=== PATIENT | female | born 1940 | race Caucasian/White ===

== ENCOUNTER 2020-10-06 12:46 | Outpatient (RCR) | payer MEDICARE, SELFPAY | END 2020-11-25 12:08 | disposition home or self-care (01) | LOC: HO.WCC 12:46 | PROVIDERS: PCP Internal Medicine Medical Oncology; Visit Provider Physician Assistant | DX: Z09 Encounter for follow-up examination after completed treatment for conditions other than malignant neoplasm (principal); I87.2 Venous insufficiency (chronic) (peripheral); I70.202 Unspecified atherosclerosis of native arteries of extremities, left leg; I70.201 Unspecified atherosclerosis of native arteries of extremities, right leg; I89.0 Lymphedema, not elsewhere classified; I11.0 Hypertensive heart disease with heart failure; I50.33 Acute on chronic diastolic (congestive) heart failure; Z79.01 Long term (current) use of anticoagulants | CPT/HCPCS: 11042; 99204; 99212; 99213 ==

== ENCOUNTER 2020-12-08 08:47 | Outpatient (REF) | payer MEDICARE, SELFPAY ==
--- NOTE | 2020-12-08 | US_ITS ---
EXAMINATION: COLOR-FLOW DUPLEX IMAGING OF THE UNILATERAL RIGHT LOWER EXTREMITY ARTERIAL SYSTEM. VELOCITY MEASUREMENTS THROUGHOUT THE FEMORAL ARTERIES WITH ANKLE-BRACHIAL PERIPHERAL ARTERIAL TESTING. CLINICAL INFORMATION: This is an 80-year-old female with hypertension. Peripheral arterial disease. Ulceration in the right leg. Interventional Radiologist: Jesus Manuel Salvador M.D., F.S.I.R., F.A.C.R. RIGHT FEMORAL RUNOFF VELOCITIES: The right common femoral artery measures 93 cm/s and biphasic. The right profunda femoral artery is 97 cm/s and is biphasic. Right proximal superficial femoral artery measures 85 cm/s and triphasic. Mid superficial femoral artery is 81 cm/s and triphasic. Distal right superficial femoral artery measures 116 cm/s and is triphasic. Right popliteal velocity measures 77 cm/s and is triphasic. The posterior tibial artery velocity measures 138 cm/s and was triphasic. There is a Campbell's cyst in the popliteal fossa measuring 2.4 x 1.2 x 2.7 cm. There is a prominent lymph node within the right groin measuring 3.7 x 0.9 x 1.7 cm. It has a fatty hilum with standard expected vascularity. Clinical correlation is recommended. US/US arterial duplex LE RT IMPRESSION: 1. No focal hemodynamically significant stenosis by peripheral arterial testing.
== END 2020-12-08 08:48 | disposition home or self-care (01) ==
LOC: HO.US 08:47
PROVIDERS: Visit Provider Physician Assistant
DX: I89.0 Lymphedema, not elsewhere classified (principal); I50.33 Acute on chronic diastolic (congestive) heart failure; I70.239 Atherosclerosis of native arteries of right leg with ulceration of unspecified site; I70.238 Atherosclerosis of native arteries of right leg with ulceration of other part of lower leg
CPT/HCPCS: 93926

== ENCOUNTER → 2021-12-16 13:46 | Outpatient (BNVA) | payer MEDICARE, SELFPAY | PROVIDERS: PCP Internal Medicine Medical Oncology; Visit Provider Surgery | DX: C50.912 Malignant neoplasm of unspecified site of left female breast (principal) | CPT/HCPCS: 99202 ==

== ENCOUNTER 2021-12-30 07:51 | Inpatient (IN) | payer MEDICARE, SELFPAY ==
[2021-12-28 10:23] VITALS: BMI 38.2
--- NOTE | 2021-12-29 12:12 | HO.ANESPROP2 ---
Documented by User: Catalina Razo NP 12/29/21 12:28 HPI - Anesthesia Eval Consult details Narrative: 81yo F for Left Mastectomy Modified Radical Eliquis for afib Stable cardiac visit 08/2021 [facility] Active Problems Active Problems: All Active Problems (Updated 12/28/21 @ 10:18 by Francisca Villa, JOSE RAUL) Recurrent cancer of left breast (Acute) Triple negative malignant neoplasm of breast (Acute) Invasive ductal carcinoma of left breast (Acute) Past Medical History Medical History Aortic stenosis, mild Arthritis Atrial fibrillation COVID-19 vaccine series completed History of cardioversion Hypertension Invasive ductal carcinoma of left breast Lichen sclerosus et atrophicus Obesity Pulmonary nodule Skin cancer Subdural hematoma (2016) Vertigo Family History Family History Maternal Grandmother Cervical cancer Father Prostate cancer Paternal Aunt Breast cancer Surgical History Surgical History History of cataract surgery History of lumpectomy of left breast (2008) History of tubal ligation Social History Social History Are you a primary healthcare account manager to a significant other at home: No Do you presently have visiting nurse or other home services: No Alcohol intake: never Patient Tobacco Use Status: Never used Tobacco Use of substances other than those prescribed or required for medical reasons: No Have you been hit, kicked, punched, or otherwise hurt by someone within the past year? If so, by whom?: No Advance Directives Information Provided: Yes (states will bring copies of HCP & MOLST forms DOS) Advance Directives on File: No Recently lost weight without trying: No Eating poorly because of decreased appetite: No Nutrition Risks: No Nutritional Risk Poor oral hygiene: No Meds Allergies Allergy/AdvReac Type Severity Reaction Status Date / Time Sulfa (Sulfonamide Allergy Intermediate rash Verified 12/28/21 10:19 Antibiotics) (childhood allergy) Home Medications Medication Instructions Recorded Confirmed Last Taken Type apixaban 5 mg tablet (Eliquis) 5 mg PO BID 12/17/21 12/28/21 Unknown History bumetanide 2 mg tablet 2 mg PO DAILY 12/17/21 12/28/21 Unknown History diltiazem HCl 120 mg 120 mg PO DAILY 12/17/21 12/28/21 Unknown History capsule,extended release 24 hr isosorbide mononitrate 60 mg 60 mg PO QAM 12/17/21 12/28/21 Unknown History tablet,extended release 24 hr metoprolol succinate 200 mg 200 mg PO DAILY 12/17/21 12/28/21 Unknown History tablet,extended release 24 hr potassium chloride 20 mEq 20 meq PO DAILY 12/17/21 12/17/21 Unknown History tablet,extended release calcium carbonate 600 mg calcium 600 mg PO TID 12/27/21 12/28/21 Unknown History (1,500 mg) tablet cholecalciferol (vitamin D3) 25 25 mcg PO DAILY 12/27/21 12/27/21 Unknown History mcg (1,000 unit) capsule (Vitamin D3) multivitamin 1 tab PO DAILY 12/27/21 12/28/21 Unknown History potassium chloride 20 mEq 1 tab PO DAILY 12/28/21 12/28/21 Unknown History tablet,extended release Exam Exam Date and Time: December 29, 2021 1212 Height,Weight and Vital Signs: Height 5 ft 2 in Weight 94.801 kg Pertinent Lab Results Pertinent Lab Results: Labs from outside facility 11/04/2021 Na 140 K 3.8 Cl 100 Bicarb 30 BUN 23 Creat 1.0 WBC 8.2 Hgb 13.0 Hct 40.5 125 (L) Narrative Narrative: EKG 08/2021 SR with 1st deg AV block Mod voltage criteria for LVH, may be normal variant Borderline EKG When compared with previous, Premature supraventricular complexes are no longer present ECHO 05/2021 LA moderately to severely dilated Aortic valve is trileaflet Aortic valve appears moderately to severely calcified Mild aortic stenosis Mild to moderate aortic regurg Mild mitral regurg Dilation of ascending aorta measureing 4.1cm LV size is normal LV wall thickness is normal LV systolic function is normal LVEF 55-60% No regional wall motion abn Grade 1, mild DD with impaired LV relaxation Pt in SR Assessment and Plan Assessment Anesthesia Assessment: Chart Reviewed Documented by User: Heidy Jimenez MD 12/30/21 10:04 [facility] Active Problems Active Problems: All Active Problems (Updated 12/28/21 @ 10:18 by Francisca Villa RN) Recurrent cancer of left breast (Acute) Triple negative malignant neoplasm of breast (Acute) Invasive ductal carcinoma of left breast (Acute) On eliquis for afib. 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 sclerosus et atrophicus Obesity Pulmonary nodule Skin cancer Subdural hematoma (2017) Vertigo Family History Family History Maternal Grandmother Cervical cancer Father Prostate cancer Paternal Aunt Breast cancer Family history of problems with anesthesia: No Surgical History Surgical History History of cataract surgery History of lumpectomy of left breast (2008) History of tubal ligation History of Problems with Anesthesia: No Social History Social History Are you a primary healthcare account manager to a significant other at home: No Do you presently have visiting nurse or other home services: No Alcohol intake: never Patient Tobacco Use Status: Never used Tobacco Use of substances other than those prescribed or required for medical reasons: No Have you been hit, kicked, punched, or otherwise hurt by someone within the past year? If so, by whom?: No Advance Directives Information Provided: Yes (states will bring copies of HCP & MOLST forms DOS) Advance Directives on File: No Recently lost weight without trying: No Eating poorly because of decreased appetite: No Nutrition Risks: No Nutritional Risk Poor oral hygiene: No Meds Allergies Allergy/AdvReac Type Severity Reaction Status Date / Time Sulfa (Sulfonamide Allergy Intermediate rash Verified 12/28/21 10:19 Antibiotics) (childhood allergy) Home Medications Medication Instructions Recorded Confirmed Last Taken Type apixaban 5 mg tablet (Eliquis) 5 mg PO BID 12/17/21 12/28/21 Unknown History bumetanide 2 mg tablet 2 mg PO DAILY 12/17/21 12/28/21 Unknown History diltiazem HCl 120 mg 120 mg PO DAILY 12/17/21 12/28/21 Unknown History capsule,extended release 24 hr isosorbide mononitrate 60 mg 60 mg PO QAM 12/17/21 12/28/21 Unknown History tablet,extended release 24 hr metoprolol succinate 200 mg 200 mg PO DAILY 12/17/21 12/28/21 Unknown History tablet,extended release 24 hr potassium chloride 20 mEq 20 meq PO DAILY 12/17/21 12/17/21 Unknown History tablet,extended release calcium carbonate 600 mg calcium 600 mg PO TID 12/27/21 12/28/21 Unknown History (1,500 mg) tablet cholecalciferol (vitamin D3) 25 25 mcg PO DAILY 12/27/21 12/27/21 Unknown History mcg (1,000 unit) capsule (Vitamin D3) multivitamin 1 tab PO DAILY 12/27/21 12/28/21 Unknown History potassium chloride 20 mEq 1 tab PO DAILY 12/28/21 12/28/21 Unknown History tablet,extended release Exam Height,Weight and Vital Signs: Height 5 ft 2 in Weight 94.801 kg Vital Signs Temp Pulse Resp BP Pulse Ox 12/30/21 08:53 128/81 12/30/21 08:29 98.3 F 73 18 164/89 H 96 Airway Mallampati Class: II TM Dist: >3cm Neck ROM: Full Loose/Missing/Broken Teeth: Yes (1 extraction bottom Right) Heart: RRR + murmur Lungs: CTAB Assessment and Plan Assessment Anesthesia Assessment: Anesthesia Plan Discussed Final Anesthetic Review Family History of Problems with Anesthesia: No History of Problems with Anesthesia: No NPO: Yes ASA Class: III Final Preanesthetic Review: No Changes in Pt Med Stat, Meds/Allgs Chart Reviewed, Consent Obtained/Reviewed, Anes Risks/Benef Reviewed and DNR Form (If Appl.) Patient Risk: Intermediate Procedure Risk: Intermediate Assessment/Block/Sedation in SS: Assess/Block/Sedation-SS Anesthetic Plan Anesthetic Plan: GA Disposition: Standard PACU and Inp. Admit - Standard Bed
[2021-12-30] VITALS (11 sets, daily range): BP systolic 128–164; BP diastolic 64–89; PULSE 50–73; RESP 16–18; TEMP 36.1–36.8; O2SAT 95–99; BMI 38.2
[2021-12-30 08:50] LABS: COVID-19 Test Negative (Negative); IDNOW Serial# 9DD0AD1C
--- NOTE | 2021-12-30 09:28 | MHC.SHP ---
Pre-Procedural Eval Section A Date of Service: 12/30/21 The patient is an INPATIENT: No Changes since office visit: Yes Patient answered all questions; No Cold of Flu in the past 2 weeks, No New Medical Problems and No Changes in Medication The History & Physical has been completed within 30 days and I have reviewed it.: Yes Section B Chief Complaint: Recurrent left breast cancer Allergies: Allergies Allergy/AdvReac Type Severity Reaction Status Date / Time Sulfa (Sulfonamide Allergy Intermediate rash Verified 12/28/21 10:19 Antibiotics) (childhood allergy) Plan Diagnosis/Plan: Unchanged I have reviewed the history and physical and performed a pertinent physical examination on my patient. No changes have occurred unless specified.
--- NOTE | 2021-12-30 11:56 | P.OP_ITS ---
Operative Note Operative Note Date of Service: 12/30/21 Narrative: Preoperative diagnosis:Recurrent left breast invasive ductal carcinoma, triple negative Postoperative diagnosis: same Procedure: left modified radical mastectomy Surgeon: Mitchel Crawford MD Senior Hadoop Developer: Alexa Flores PA-C Anesthesia: general LMA Indications for procedure: 81-year-old female patient with a previous history of a invasive ductal carcinoma of the left breast in 2009 status post lumpectomy and axillary node dissection. Previous tumor was ER/UT positive. Patient underwent radiation therapy following the procedure. She is now found to have a palpable mass in the left breast. Subsequent ultrasound guided core biopsy revealed a recurrent invasive ductal carcinoma, ER/ UT/HER2 Bj negative. She presents today for modified radical mastectomy. Operative findings: Incision in the upper outer quadrant from the prior lumpectomy. Significant scar tissue in the left axilla from the previous axillary node dissection. Specimen: Left breast and axilla Estimated blood loss: 10 mL Drains: Amor-Monroe x2 Complications: none Procedure details: patient was brought to the OR placed in a supine position. After administering general anesthesia the patient's left breast was prepped w ith ChloraPrep and draped in a sterile fashion. A surgical time-out was called the consent confirmed. Patient received preoperative antibiotics and Venodyne boots were in place. Local anesthesia consisting of 0.5% Sensorcaine was infiltrated circumferentially around the breast. An elliptical incision to include the previous incision was created with a 10 blade starting from the lower medial sternal border and radiating obliquely towards the axilla. Incision was carried down through subcutaneous tissue up to the capsule of the breast. Beginning at the superior skin flap incision was continued superiorly over the breast tissue using electrocautery up to the bottom surface of the clavicle. Inferior flap was also extended over the breast capsule and extending down to the costal margin. The dissection was continued from medial to lateral. Breast was then dissected off the chest wall from medial to lateral again using electrocautery. Hemostasis was assured all times using electroc autery. Dissection was continued up into the axilla and around the pectoralis major and minor muscle. Latissimus Dorsi muscle was identified and retracted laterally. Dissection was continued up towards the axillary vein. Core of lymphatic tissue was left surrounding the axillary vein. Level 1 and 2 nodes were dissected. Because of the previous lymphatic surgery there was significant scar tissue noted in the axilla and no definite enlarged lymph nodes were identified. No other palpable nodes were noted be on level 2. Wounds were irrigated with saline solution and suctioned dry. Hemostasis was assured using electrocautery. Two 7. Amor-Monroe drains were then left place 1 into the superior breast flap and the 2nd into the axilla. Both were secured to the skin using a nylon suture. Both were connected to bulb suction. Dermis was then reapproximated using interrupted 3-0 Polysorb sutures. Skin was closed using skin nehemias. Sterile dressings were applied. This was followed by a breast binder. The patient tolerated the procedure well. Sponge, instrument, and needle counts reported as correct. The patient was transferred to PACU in stable condition. Breast Axillary Dissection Resection was performed within the boundaries of the axillary vein, chest wall (serratus anterior), and latissimus dorsi: Yes The long thoracic and thoracodorsal nerves were spared during dissection: Yes Attempts were made to spare the intercostobrachial nerves during dissection if possible: Yes If one or more level III nodes is/are removed, then document why: n/a General Surg. - Synoptic Notes Breast Axillary Dissection Resection was performed within the boundaries of the axillary vein, chest wall (serratus anterior), and latissimus dorsi: Yes The long thoracic and thoracodorsal nerves were spared during dissection: Yes Attempts were made to spare the intercostobrachial nerves during dissection if possible: Yes If one or more level III nodes is/are removed, then document why: n/a
[2021-12-30] MEDS: Dextrose 5 % and Lactated Ring 1,000 ML 100 ML IVCONT ×2 (12:31→22:18)
[2021-12-31 06:33] LABS: Anion Gap 14 (12-20); Blood Urea Nitrogen 20 mg/dL (9-16); Calcium 8.3 mg/dL (8.4-10.2); Carbon Dioxide 24 mmol/L (22-29); Chloride 103 mmol/L (96-108); Creatinine Clr Calc Pharmacy 44.8; Estimated Glomerular Filt Rate 52; Glucose Random 128 mg/dL (60-115); Potassium 4.3 mmol/L (3.3-5.1); Sodium 137 mmol/L (135-145)
[2021-12-31 07:09] VITALS: BP 145/62; PULSE 70; RESP 19; TEMP 36.1; O2SAT 92
[2021-12-31] MEDS: Dextrose 5 % and Lactated Ring 1,000 ML 100 ML IVCONT (07:16)
[2021-12-31] MEDS: Cholecalciferol (Vitamin D3) 25 MCG TABLET PO (08:19)
[2021-12-31] MEDS: Isosorbide Mononitrate 60 MG TAB.ER.24H PO (08:19)
[2021-12-31] MEDS: Potassium Chloride ER 20 MEQ TAB.ER.PRT PO (08:19)
[2021-12-31] MEDS: Bumetanide 1 MG TABLET 2 MG PO (08:19)
[2021-12-31] MEDS: Metoprolol Succinate ER 100 MG TAB.ER.24H 200 MG PO (08:20)
[2021-12-31] MEDS: dilTIAZem HCL CD 120 MG CAP.ER.DEG PO (08:20)
[2021-12-31 08:54] LABS: Basophils Percent Auto 0.1 % (0-2); Eosinophils Percent Auto 0.4 % (0-4); Hematocrit 35.8 % (37.0-47.0); Hemoglobin 11.6 g/dl (12.0-16.0); Imm Gran Abs Auto 0.06 X10*3/uL (0.00-0.03); Imm Gran Pct Auto 0.9 % (0.0-0.4); Lymphocytes Absolute Auto 1.7 X10*3/uL (1.2-4.9); Lymphocytes Percent Auto 24.2 % (20-40); Mean Corpuscular HGB Conc 32.4 g/dl (31.0-35.0); Mean Corpuscular Hemoglobin 27.6 pg (27.0-33.0); Mean Corpuscular Volume 85.2 fL (80.0-98.0); Mean Platelet Volume 11.3 fL (9.4-12.3); Monocytes Percent Auto 13.6 % (2-11); Neutrophils Absolute Auto 4.3 x10*3/uL (2.0-8.3); Neutrophils Percent Auto 60.8 % (45-73); Platelet Count 106 X10*3/uL (160-400); Red Cell Distribution Width 16.3 % (11.0-16.0)
--- NOTE | 2021-12-31 09:03 | MHC.CM.PN ---
IMM 12/31/21, EMR REVIEWED, PT ADMITTED S/P LEFT RADICAL MASTECTOMY, CM MET W/PT WHO IS A&OX4, REPORTS SHE IS STILL WORKING, IS INDEPENDENT W/ALL CARE, USES A CANE WHEN SHE GOES OUT HOWEVER NOT AT HOME AND PT HAS GRAB BARS BY SHOWER, NO HOME SERVICES, PT VERIFIED PCP/ONCOLOGIST IS RUBEN KHAN, PT REPORTS SHE IS FULLY VACCINATED AND PT PROVIDED COPY OF HCP AND MOLST, PT'S HCP IS HER ERIC FAGAN. D/C PLAN HOME TODAY W/NEW [facility]NA (YESSY DRAIN) AND FAMILY FOR TRANSPORT MODERNA: 12/30, 01/27 AND 11/09/21
[2021-12-31 09:15] LABS: MANUAL DIFF FLAG NO
--- NOTE | 2021-12-31 09:21 | P.PNGS_ITS ---
Subjective Subjective Date of Service: 12/31/21 <Alexa Flores PA-C - Last Filed: 12/31/21 09:24> 12/31/21 <Mitchel Crawford MD - Last Filed: 12/31/21 10:55> Interval history: Feels well today. Only has pain when lifts L arm up. Tolerating diet. Feels ready to go home. <Alexa Flores PA-C - Last Filed: 12/31/21 09:24> Physical Exam Vital Signs: Vital Signs: Last Vital Signs Temp 97 F 12/31/21 07:09 Pulse 70 12/31/21 07:09 Resp 19 12/31/21 07:09 BP 145/62 H 12/31/21 07:09 Pulse Ox 92 12/31/21 07:09 BMI result Body Mass Index 38.2 <Alexa Flores PA-C - Last Filed: 12/31/21 09:24> Const: General: comfortable, no acute distress and alert <Alexa Flores PA-C - Last Filed: 12/31/21 09:24> Orientation/consciousness: patient oriented x3 <Alexa Flores PA-C - Last Filed: 12/31/21 09:24> Chest: Other: dressing c/d/i, YESSY drains with serosanguineous drainage <Alexa Flores PA-C - Last Filed: 12/31/21 09:24> Resp: Effort & Inspection: normal respiratory effort <Alexa Flores PA-C - Last Filed: 12/31/21 09:24> Skin: Other: warm and dry <Alexa Flores PA-C - Last Filed: 12/31/21 09:24> General skin exam: no rashes or lesions noted <PING Anthony Last Filed: 12/31/21 09:24> Neuro: General: patient oriented x3 <PING Anthony Last Filed: 12/31/21 09:24> Objective Data Active Medications Acetaminophen (Acetaminophen 325 Mg Tablet) 650 mg PO Q6H PRN PRN Reason: Pain, Mild (Pain Scale 1-3) Hydrocodone Bitart/Acetaminophen (Hydrocodone Bit/Acetam 5/325 Tablet) 1 tab PO Q4H PRN PRN Reason: Pain, Moderate (Pain Scale 4-6 Apixaban (Apixaban 5 Mg Tablet) 5 mg PO BID [facility] Bumetanide (Bumetanide 1 Mg Tablet) 2 mg PO DAILY [facility]; Protocol Last Admin: 12/31/21 08:19 Dose: 2 mg Documented by: YESSY Calcium Carbonate (Calcium Carbonate 500 Mg Tablet) 500 mg PO TID [facility] Last Admin: 12/31/21 08:19 Dose: 500 mg Documented by: YESSY Diltiazem HCl (Diltiazem Hcl Cd 120 Mg Cap.Er.Deg) 120 mg PO DAILY [facility]; Protocol Last Admin: 12/31/21 08:20 Dose: 120 mg Documented by: YESSY Dextrose/Lactated Ringer's (D5lr) 1,000 mls @ 100 mls/hr IVCONT .Q10H [facility] Last Admin: 12/31/21 07:16 Dose: 100 mls/hr Documented by: YESSY Isosorbide Mononitrate (Isosorbide Mononitrate 60 Mg Tab.Er.24h) 60 mg PO DAILY [facility]; Protocol Last Admin: 12/31/21 08:19 Dose: 60 mg Documented by: YESSY Magnesium Hydroxide (Milk Of Magnesia 30 Ml Oral.Susp) 30 ml PO DAILY PRN PRN Reason: Constipation Metoprolol Succinate (Metoprolol Succinate Er 100 Mg Tab.Er.24h) 200 mg PO DAILY [facility]; Protocol Last Admin: 12/31/21 08:20 Dose: 200 mg Documented by: YESSY Morphine Sulfate (Morphine Sulfate 4 Mg/Ml Cartridge) 4 mg IVPUSH Q4H PRN; Protocol PRN Reason: Pain, Severe (Pain Scale 7-10) Ondansetron HCl (Ondansetron Hcl 4 Mg/2 Ml Vial) 4 mg IVPUSH QID PRN PRN Reason: Nausea Pharmacy Consult (Consult Rx Perform Med Rec) 1 each MISCELLANE ONCE PRN PRN Reason: Consult order Potassium Chloride (Potassium Chloride Er 20 Meq Tab.Er.Prt) 20 meq PO DAILY [facility] Last Admin: 12/31/21 08:19 Dose: 20 meq Documented by: YESSY Sodium Chloride (0.9 % Sodium Chloride Flush 3 Ml Syringe) 3 ml IVFLUSH QSHIFT [facility] Last Admin: 12/31/21 08:19 Dose: Not Given Documented by: YESSY Non-Admin Reason: IV Running Temazepam (Temazepam 15 Mg Capsule) 15 mg PO BEDTIME PRN PRN Reason: Insomnia Vitamin D (Cholecalciferol (Vitamin D3) 25 Mcg Tablet) 25 mcg PO DAILY [facility] Last Admin: 12/31/21 08:19 Dose: 25 mcg Documented by: YESSY <Alexa Flores PA-C - Last Filed: 12/31/21 09:24> Labs CBC & Chem 7: : 12/31/21 08:04 12/31/21 05:56 <Alexa Flores PA-C - Last Filed: 12/31/21 09:24> Labs: Laboratory Results - last 24 hr 12/31/21 12/31/21 05:56 08:04 MCV 85.2 MCH 27.6 MCHC 32.4 RDW 16.3 H Plt Count 106 L MPV 11.3 Immature Gran % (Auto) 0.9 H Neut % (Auto) 60.8 Lymph % (Auto) 24.2 Aiken % (Auto) 13.6 H Eos % (Auto) 0.4 Baso % (Auto) 0.1 Lymph # (Auto) 1.7 Aiken # (Auto) 1.0 Eos # (Auto) 0.0 Baso # (Auto) 0.0 Abs Immat Gran (auto) 0.06 H Absolute Neuts (auto) 4.3 Absolute Nucleated RBC 0.000 Nucleated RBC % (auto) 0.0 Anion Gap 14 Estim Creat Clear Calc 44.8 Estimated GFR 52 Random Glucose 128 H Calcium 8.3 L <Alexa Flores PA-C - Last Filed: 12/31/21 09:24> Procedures Date of Service Date of Service: 12/31/21 <Alexa Flores PA-C - Last Filed: 12/31/21 09:24> Progress Note: A&P Assessment and plan (1) Recurrent cancer of left breast: Status: Acute <PING Anthony Last Filed: 12/31/21 09:24> (2) Invasive ductal carcinoma of left breast: Status: Acute <Alexa Flores PA-C - Last Filed: 12/31/21 09:24> Plan 81 year old female with invasive ductal ca of left breast now POD #1 s/p MRM. Doing well post op. Good pain control. VSS. Mastectomy site- dressing c/d/i. YESSY with serosanguineous drainage. Stable for d/c to home today with [facility]NA services for drain care. Patient comfortable with plan. F/u in office. <Alexa Flores PA-C - Last Filed: 12/31/21 09:24> 81 year old female with invasive ductal ca of left breast now POD #1 s/p MRM. Doing well post op. Good pain control. VSS. Mastectomy site- dressing c/d/i. YESSY with serosanguineous drainage. Stable for d/c to home today with [facility]NA services for drain care. Patient comfortable with plan. F/u in office. patient feels great with good pain control. Wounds are clean without hematoma. YESSY drains with minimal output. Agree with the above assessment and plan. Will follow-up in the office in approximately 1 week. She should call for fever, chills, nausea, vomiting, or other new concerns. <Mitchel Crawford MD - Last Filed: 12/31/21 10:55> Fall Risk Details Current Medications: Current Medications Acetaminophen (Acetaminophen 325 Mg Tablet) 650 mg PO Q6H PRN PRN Reason: Pain, Mild (Pain Scale 1-3) Hydrocodone Bitart/Acetaminophen (Hydrocodone Bit/Acetam 5/325 Tablet) 1 tab PO Q4H PRN PRN Reason: Pain, Moderate (Pain Scale 4-6 Apixaban (Apixaban 5 Mg Tablet) 5 mg PO BID [facility] Bumetanide (Bumetanide 1 Mg Tablet) 2 mg PO DAILY [facility]; Protocol Last Admin: 12/31/21 08:19 Dose: 2 mg Documented by: Calcium Carbonate (Calcium Carbonate 500 Mg Tablet) 500 mg PO TID [facility] Last Admin: 12/31/21 08:19 Dose: 500 mg Documented by: Diltiazem HCl (Diltiazem Hcl Cd 120 Mg Cap.Er.Deg) 120 mg PO DAILY [facility]; Protocol Last Admin: 12/31/21 08:20 Dose: 120 mg Documented by: Dextrose/Lactated Ringer's (D5lr) 1,000 mls @ 100 mls/hr IVCONT .Q10H [facility] Last Admin: 12/31/21 07:16 Dose: 100 mls/hr Documented by: Isosorbide Mononitrate (Isosorbide Mononitrate 60 Mg Tab.Er.24h) 60 mg PO DAILY [facility]; Protocol Last Admin: 12/31/21 08:19 Dose: 60 mg Documented by: Magnesium Hydroxide (Milk Of Magnesia 30 Ml Oral.Susp) 30 ml PO DAILY PRN PRN Reason: Constipation Metoprolol Succinate (Metoprolol Succinate Er 100 Mg Tab.Er.24h) 200 mg PO DAILY [facility]; Protocol Last Admin: 12/31/21 08:20 Dose: 200 mg Documented by: Morphine Sulfate (Morphine Sulfate 4 Mg/Ml Cartridge) 4 mg IVPUSH Q4H PRN; Protocol PRN Reason: Pain, Severe (Pain Scale 7-10) Ondansetron HCl (Ondansetron Hcl 4 Mg/2 Ml Vial) 4 mg IVPUSH QID PRN PRN Reason: Nausea Pharmacy Consult (Consult Rx Perform Med Rec) 1 each MISCELLANE ONCE PRN PRN Reason: Consult order Potassium Chloride (Potassium Chloride Er 20 Meq Tab.Er.Prt) 20 meq PO DAILY [facility] Last Admin: 12/31/21 08:19 Dose: 20 meq Documented by: Sodium Chloride (0.9 % Sodium Chloride Flush 3 Ml Syringe) 3 ml IVFLUSH QSHIFT [facility] Last Admin: 12/31/21 08:19 Dose: Not Given Documented by: Temazepam (Temazepam 15 Mg Capsule) 15 mg PO BEDTIME PRN PRN Reason: Insomnia Vitamin D (Cholecalciferol (Vitamin D3) 25 Mcg Tablet) 25 mcg PO DAILY [facility] Last Admin: 12/31/21 08:19 Dose: 25 mcg Documented by: <Alexa Flores PA-C - Last Filed: 12/31/21 09:24> Time Spent With Patient Time: Total time spent is greater than 50% in coordination of care (as documented) at patient's floor/unit and/or counseling patient: <Alexa Flores PA-C - Last Filed: 12/31/21 09:24> Time with patient: 15 - 24 minutes <Alexa Flores PA-C - Last Filed: 12/31/21 09:24> Quality Stroke Does the patient have a stroke diagnosis?: No <Alexa Flores PA-C - Last Filed: 12/31/21 09:24> VTE Prior VTE?: No <Alexa Flores PA-C - Last Filed: 12/31/21 09:24> VTE Risk Level:: Surgical - high <Alexa Flores PA-C - Last Filed: 12/31/21 09:24> VTE Device Contraindication: N/A - Device Ordered <Alexa Flores PA-C - Last Filed: 12/31/21 09 :24> VTE Drug Contraindication: N/A - Med Ordered <Alexa Flores PA-C - Last Filed: 12/31/21 09:24>
--- NOTE | 2021-12-31 09:28 | MHC.CM.PN ---
PT'S PREFERRED [facility] UNABLE TO PROVIDE SERVICES FOR PT, [facility] REFERRAL PLACED AND SOC WILL BE Monday01/02/21
--- NOTE | 2021-12-31 10:00 | W.MHC.F2F ---
Service Date Service Date: 12/31/21 Encounter Date of encounter: 12/31/21 Reasons for Services Signs and symptoms assessed: incisional pain, left arm function, dressing appearance, drain output Reason for detention: wound care and postoperative assessment and/or care (YESSY drain care- empty and measure & record output) Homebound: Leaving the home is medically contraindicated at this time without the asist of a device and/or another person due th the listed conditions above and below. Reason homebound: weakness related to hospital stay and unable to drive Homebound supporting statement: Ms. Mendoza is s/p left modified radical mastectomy for invasive ductal CA of left breast. She has two YESSY drains in place and will need home nursing services for care. Certification: Based on the above findings, I certify that this patient is confined to the home and needs intermittent detention care, physical therapy and/or speech therapy, or continues to need occupational therapy. The patient is under my care, and I have initiated the establishment of the plan of care. The patient will be followed by a physician who will periodically review the plan of care.
--- NOTE | 2021-12-31 10:02 | MHC.CM.PN ---
CM MET W/PT TO DISCUSS DCP, PT UPDATED ON BED OFFERS AND AWARE [facility] IS REVIEWEING AND [facility] CAN OFFER A BED, PT PREFERS [facility] HOWEVER IS OKAY W/[facility] IF [facility] CAN NOT OFFER BED, PCP VERIFIED ANNA LAWLER, CM WILL CONT TO FOLLOW D/C NEEDS.
--- NOTE | 2021-12-31 13:31 | HO.POSTANES ---
Post Anesthesia Evaluation Post Anesthesia Evaluation Vital Signs: Vital Signs Temp Pulse Resp BP Pulse Ox 12/31/21 07:09 97 F 70 19 145/62 H 92 Anesthesia: General Mental Status: Awake Pain Control: Satisfactory Nausea/Vomiting: None Hydration: Adequate Anesthesia-Related Issues: No Anes. Related Issues
--- NOTE | 2021-12-31 14:05 | P.DS_ITS ---
DS: Providers Provider Date of Service: 12/31/21 Date of admission: 12/30/21 07:51 Primary care physician: Lee Tapia MD Attending physician on admission: Mitchel Crawford DS: Diagnosis Discharge Diagnosis (1) Recurrent cancer of left breast: Status: Acute (2) Invasive ductal carcinoma of left breast: Status: Acute DS: Summary Hospital Course Hospital Course: BRIEF HPI: 81-year-old female patient with a previous history of a invasive ductal carcinoma of the left breast in 2009 status post lumpectomy and axillary node dissection. Previous tumor was ER/HI positive. Patient underwent radiatio n therapy following the procedure. She is now found to have a palpable mass in the left breast. Subsequent ultrasound guided core biopsy revealed a recurrent invasive ductal carcinoma, ER/ HI/HER2 Bj negative. She presents today for modified radical mastectomy. HOSPITAL COURSE: On 12/31/21, a left modified radical mastectomy was performed by Dr. Crawford without complication. The patient tolerated the procedure well, completed routine recovery and was admitted for observation. The patient had an uncomplicated recovery course. On POD #1, she felt well and had minimal pain at the mastectomy site. She was tolerating a solid diet and OOB without difficulty. She was using her left arm without difficulty, weakness or any note of swelling. She was clinically appearing well and her dressing was c/d/i and YESSY drains had serosanguineous drainage. These were left in place. She felt ready for discharged. She was discharged to home on 12/31/21 in stable condition with VNA services for drain care. All her home medications were resumed. She is to follow up with Dr. Crawford in office. Status at Discharge Functional status at discharge: independent ambulation Overall status at discharge: patient is progressing back to baseline Time Spent with Patient Time attestation: Total time spent providing and/or coordinating discharge services: Discharge coordination time: Greater than 30 minutes Quality: Stroke Does the patient have a stroke diagnosis?: No Physical Exam Vital Signs: Vital Signs: Last Vital Signs Temp 97 F 12/31/21 07:09 Pulse 70 12/31/21 07:09 Resp 19 12/31/21 07:09 BP 145/62 H 12/31/21 07:09 Pulse Ox 92 12/31/21 07:09 BMI result Body Mass Index 38.2 Const: General: comfortable, no acute distress and alert Orientation/consciousness: patient oriented x3 Chest: Other: dressing c/d/i, YESSY drains with serosanguineous output Resp: Effort & Inspection: normal respiratory effort Skin: Other: warm and dry General skin exam: no rashes or lesions noted Neuro: General: patient oriented x3 Extrem: General: Yes no clubbing, cyanosis or edema DS: Data Data Completed and Pending Pending studies at discharge: Pending at discharge 12/30/21 11:50 Surgical [PTH] Routine Labs on day of discharge: Laboratory Results - last 24 hr 12/31/21 12/31/21 05:56 08:04 WBC 7.0 RBC 4.20 Hgb 11.6 L Hct 35.8 L MCV 85.2 MCH 27.6 MCHC 32.4 RDW 16.3 H Plt Count 106 L MPV 11.3 Immature Gran % (Auto) 0.9 H Neut % (Auto) 60.8 Lymph % (Auto) 24.2 [place] % (Auto) 13.6 H Eos % (Auto) 0.4 Baso % (Auto) 0.1 Lymph # (Auto) 1.7 [place] # (Auto) 1.0 Eos # (Auto) 0.0 Baso # (Auto) 0.0 Abs Immat Gran (auto) 0.06 H Absolute Neuts (auto) 4.3 Absolute Nucleated RBC 0.000 Nucleated RBC % (auto) 0.0 Sodium 137 Potassium 4.3 Chloride 103 Carbon Dioxide 24 Anion Gap 14 BUN 20 H Creatinine 1.02 Estim Creat Clear Calc 44.8 Estimated GFR 52 Random Glucose 128 H Calcium 8.3 L Discharge Plan Discharge Patient Disposition: Home Health Service Discharge Diagnosis: s/p MRM Referrals: [facility]ARDS [Outside] - 1 Day (CARE HOME VISITS, START OF CARE WILL BE TUESDAY 01/02) Lee Tapia MD [Primary Care Provider] - 1 Week Mitchel Crawford MD [Physician] - 1 Week Discharge Medications: New oxycodone 5 mg tablet 5 mg PO Q4H PRN (Reason: pain (scale score 7-10)) Qty: 30 0RF docusate sodium [Colace] 100 mg capsule 100 mg PO BID PRN (Reason: constipation) Qty: 30 0RF Continued multivitamin Tablet 1 tab PO DAILY 0RF calcium carbonate 600 mg calcium (1,500 mg) Tablet 600 mg PO TID 0RF cholecalciferol (vitamin D3) [Vitamin D3] 25 mcg (1,000 unit) Capsule 25 mcg PO DAILY 0RF potassium chloride 20 mEq tablet extended release 1 tab PO DAILY 0RF Eliquis 5 mg tablet 5 mg PO BID 0RF isosorbide mononitrate 60 mg tablet extended release 24 hr 60 mg PO QAM 0RF bumetanide 2 mg tablet 2 mg PO DAILY 0RF diltiazem HCl 120 mg capsule,extended release 24hr 120 mg PO DAILY 0RF metoprolol succinate 200 mg tablet extended release 24 hr 200 mg PO DAILY 0RF Discharge Orders: Discharge Order (Routine); Ordered 12/31/21 Ordered By: Alexa Flores Diet: advance to usual diet Activity on Discharge: No heavy lifting Stand Alone Forms: Patient Portal Discharge page Activity Restrictions/Additional Instructions: If the incision area is tender, you may apply an ice pack for short intervals (No more than 20 minutes on, followed by at least 20 minutes off). Do not apply heat. Do not use creams, lotions, or topical antibiotics unless instructed to do so by your surgeon. These can cause infection or allergic reaction. Ok to shower. You have nehemias closing your incision that will be removed in 10-14 days. No heavy lifting (>10lbs) with left arm! Follow up in office with Dr. Crawford in 1 week. ([phone]) YESSY drain care- empty daily and PRN and record amount. Bring log to appointment. Call Your Doctor If: -Your temperature exceeds 101.5? F -You experience excessive pain or swelling -You have an unexpected reaction to medication -You have excessive bleeding -You experience continued vomiting/nausea -Your incision begins to separate -Your incision shows signs of infection such as increased redness, swelling, excessive pain, drainage (light blood or clear fluid is normal) or heat Care Plan Goals: Return to baseline health and gradual return to activity following recovery period. Health Concerns: invasive ductal CA left breast Plan of Treatment: s/p modified radical mastectomy F/u in office VNA drain care Assessment: Doing well post op Discharge Date/Time: 12/31/21 10:22
== END 2021-12-31 10:22 | disposition home health service (06) | DRG 583 ==
LOC: HO.SSSA 08:00 → HO.S3 12:45
PROVIDERS: Nurse Practitioner; Admitting Provider Surgery; PCP Internal Medicine Medical Oncology; Visit Provider Surgery
PROC: 0HTU0ZZ Resection of Left Breast, Open Approach (ICD-10-PCS; CPT 19307; principal; 2021-12-30 09:30)
DX: C50.812 Malignant neoplasm of overlapping sites of left female breast (principal); Z20.822 Contact with and (suspected) exposure to COVID-19; Z88.2 Allergy status to sulfonamides; Z79.01 Long term (current) use of anticoagulants; Z79.899 Other long term (current) drug therapy
CPT/HCPCS: 36415; 80048; 85025; 86850; 86900; 86901; 87635; 88309; 88360; 99024; J0131; J0690; J1170; J2250; J2405; J3010

== ENCOUNTER → 2022-01-11 10:46 | Outpatient (BNVA) | payer MEDICARE, SELFPAY | PROVIDERS: PCP Internal Medicine Medical Oncology; Visit Provider Surgery | DX: C50.912 Malignant neoplasm of unspecified site of left female breast (principal) | CPT/HCPCS: 99212 ==

== ENCOUNTER 2022-02-11 15:31 | Inpatient (IN) | payer MEDICARE, SELFPAY ==
--- NOTE | 2022-02-11 13:38 | P.HPGS_ITS ---
History of Present Illness History of Present Illness Date of Service: 02/11/22 <Alexa Flores PA-C - Last Filed: 02/11/22 14:57> 02/12/22 <Mello Shine MD - Last Filed: 02/12/22 10:19> Chief complaint: wound check <Alexa Flores PA-C - Last Filed: 02/11/22 14:57> Narrative: Annabelle Mendoza is a 81 year old female with PMH of A fib on eliquis, HTN, recent left modified radical mastectomy on 12/30/21 for invasive ductal CA of left breast who presented to the office today for increasing redness of the mastectomy site. She was seen 1 week post op and was doing well then. Her incision was clean. Her drains were removed. She reports she had been doing well since her post op visit. She did call [place], humane officer on Monday02/04/22 and stated the mastectomy site was a little more swollen then usual. She denied redness, drainage, pain at that time. She was told to call back if it became red or began to worsen. She called today and stated it was very red and was instructed to come in. She reports it progressively worsened since last Monday and became very red and warm today, prompting her to call. She continues to deny drainage from the breast or pain. She denies trauma to the site or any bites, fever or chills. She otherwise feels well. <Alexa Flores PA-C - Last Filed: 02/11/22 14:57> Review of Systems Constitutional: Constitutional: Denies chills and Denies fever(s) <Alexa Flores PA-C - Last Filed: 02/11/22 14:57> ENT: Denies dizziness <PING Anthony Last Filed: 02/11/22 14:57> Cardiovascular: Cardiovascular: Denies chest pain and Denies dyspnea <PING Anthony Last Filed: 02/11/22 14:57> Respiratory: Respiratory: Denies dyspnea <PING Anthony Last Filed: 02/11/22 14:57> Gastrointestinal: Gastrointestinal: Denies diarrhea and Denies vomiting <Alexa Flores PA-C - Last Filed: 02/11/22 14:57> Integumentary/Breasts: Skin/Breast: Reports as per HPI <Alexa Flores PA-C - Last Filed: 02/11/22 14:57> Neurologic: Denies confusion and Denies dizziness <FADIA Anthony - Last Filed: 02/11/22 14:57> Psychiatric: Psychiatric: Denies confusion <Alexa Flores PA-C - Last Filed: 02/11/22 14:57> [facility] Past Medical History Medical History: Medical History (Updated 02/11/22 @ 13:33 by Alexa Flores PA-C) Aortic stenosis, mild Arthritis Atrial fibrillation COVID-19 vaccine series completed History of cardioversion Hypertension Invasive ductal carcinoma of left breast Lichen sclerosus et atrophicus Obesity Pulmonary nodule Skin cancer Subdural hematoma (2017) Vertigo <Alexa Flores PA-C - Last Filed: 02/11/22 14:57> Family History Family History: Family History Maternal Grandmother Cervical cancer Father Prostate cancer Paternal Aunt Breast cancer <Alexa Flores PA-C - Last Filed: 02/11/22 14:57> Surgical History Surgical History: Surgical History (Updated 02/11/22 @ 13:27 by Alexa Flores PA-C) History of cataract surgery History of lumpectomy of left breast (2008) History of modified radical mastectomy of left breast History of tubal ligation <Alexa Flores PA-C - Last Filed: 02/11/22 14:57> Social History Social History: Social History Household Members: Spouse Household Members Other:: Housing: House Are you a primary critical care specialist to a significant other at home: No Do you presently have visiting nurse or other home services: No Alcohol intake: never Patient Tobacco Use Status: Never used Tobacco Use of substances other than those prescribed or required for medical reasons: No Currently Displaying Signs/Symptoms of Drug Intoxication Withdrawal: No Have you been hit, kicked, punched, or otherwise hurt by someone within the past year? If so, by whom?: No Do you feel safe in your current relationship?: Yes Is there a partner from a previous relationship who is making you feel unsafe now?: No Are you made to feel afraid or neglected: No Advance Directives: Yes Advance Directives on File: Yes Advance Directives Date on File: 12/30/21 Do you have thoughts of harming others: None Do you have a plan to hurt others: No Plan Recently lost weight without trying: No How much weight loss: Not applicable Eating poorly because of decreased appetite: No Nutrition screen score: 0 Nutrition Risks: No Nutritional Risk Patient : No : No Poor oral hygiene: No service: No Current occupational status: employed <Alexa Flores PA-C - Last Filed: 02/11/22 14:57> Meds Allergies/Adverse reactions: Allergies Allergy/AdvReac Type Severity Reaction Status Date / Time Sulfa (Sulfonamide Allergy Intermediate rash Verified 02/11/22 12:54 Antibiotics) (childhood allergy) <Alexa Flores PA-C - Last Filed: 02/11/22 14:57> Active Medications: Current Medications Acetaminophen (Acetaminophen 325 Mg Tablet) 650 mg PO Q6H PRN PRN Reason: pain, fever Apixaban (Apixaban 5 Mg Tablet) 5 mg PO BID TIM Bumetanide (Bumetanide 1 Mg Tablet) 2 mg PO DAILY TIM; Protocol Diltiazem HCl (Diltiazem Hcl 60 Mg Tablet) 120 mg PO DAILY TIM; Protocol Docusate Sodium (Docusate Sodium 100 Mg Capsule) 100 mg PO DAILY PRN PRN Reason: Constipation Sodium Chloride (Ns) 1,000 mls @ 80 mls/hr IVCONT .[id number] TIM Piperacillin Sod/Tazobactam (Sod 3.375 gm/ Sodium Chloride) 50 mls @ 100 mls/hr IV Q6H TIM Ceftriaxone Sodium 1 gm/ (Sodium Chloride) 50 mls @ 100 mls/hr IV Q24H TIM Isosorbide Mononitrate (Isosorbide Mononitrate 60 Mg Tab.Er.24h) 60 mg PO DAILY TIM; Protocol Melatonin (Melatonin 3 Mg Tablet) 6 mg PO BEDTIME PRN PRN Reason: Insomnia Metoprolol Succinate (Metoprolol Succinate Er 100 Mg Tab.Er.24h) 200 mg PO DAILY TIM; Protocol Ondansetron HCl (Ondansetron Hcl 4 Mg/2 Ml Vial) 4 mg IVPUSH Q8H PRN PRN Reason: Nausea and Vomiting Oxycodone HCl (Oxycodone Hcl Immed Release 5 Mg Tablet) 5 mg PO Q6H PRN PRN Reason: Pain, Severe (Pain Scale 7-10) Potassium Chloride (Potassium Chloride Er 20 Meq Tab.Er.Prt) 20 meq PO DAILY [facility] Sodium Chloride (0.9 % Sodium Chloride Flush 3 Ml Syringe) 3 ml IVFLUSH QSHIFT TIM Sodium Chloride (0.9 % Sodium Chloride Flush 3 Ml Syringe) 3 ml IVFLUSH QSHIFT TIM <Alexa Flores PA-C - Last Filed: 02/11/22 14:57> Home medications: Home Medications Medication Instructions Recorded Confirmed Last Taken Type apixaban 5 mg tablet (Eliquis) 5 mg PO BID 12/17/21 02/11/22 02/11/22 History bumetanide 2 mg tablet 2 mg PO DAILY 12/17/21 02/11/22 02/11/22 History diltiazem HCl 120 mg 120 mg PO DAILY 12/17/21 02/11/22 02/11/22 History capsule,extended release 24 hr isosorbide mononitrate 60 mg 60 mg PO DAILY 12/17/21 02/11/22 02/11/22 History tablet,extended release 24 hr metoprolol succinate 200 mg 200 mg PO DAILY 12/17/21 02/11/22 02/11/22 History tablet,extended release 24 hr calcium carbonate 600 mg calcium 600 mg PO TID 12/27/21 02/11/22 02/11/22 History (1,500 mg) tablet cholecalciferol (vitamin D3) 25 25 mcg PO DAILY 12/27/21 02/11/22 02/11/22 History mcg (1,000 unit) capsule (Vitamin D3) multivitamin 1 tab PO DAILY 12/27/21 02/11/22 02/11/22 History potassium chloride 20 mEq 1 tab PO DAILY 12/28/21 02/11/22 02/11/22 History tablet,extended release <Alexa Flores PA-C - Last Filed: 02/11/22 14:57> Physical Exam Const: General: comfortable, no acute distress and alert; No confusion <PING Anthony Last Filed: 02/11/22 14:57> Orientation/consciousness: patient oriented x3 and No confusion <Alexa Flores PA-C Last Filed: 02/11/22 14:57> Eyes: Sclerae: sclerae normal <Alexa Flores PA-C Last Filed: 02/11/22 14:57> Chest: Other: left mastectomy site with significant erythema and induration at the incision site and surrounding skin extending to the clavicle superiorly and into the abdomen inferiorly, also extends to mid back on the left; area nontender, no drainage noted, some edema/fullness of superior flap centrally ?seroma, no fluctuance appreciated <Alexa Flores PA-C Last Filed: 02/11/22 14:57> Resp: Effort & Inspection: normal respiratory effort <Alexa Flores PA-C Last Filed: 02/11/22 14:57> Cardio: Rate: regular rate <Alexa Flores PA-C Last Filed: 02/11/22 14:57> GI: Palpation (GI): Soft to palpation <Alexa Flores PA-C - Last Filed: 02/11/22 14:57> Skin: Other: warm and dry <Alexa Flores PA-C Last Filed: 02/11/22 14:57> Neuro: General: patient oriented x3 and No confusion <Alexa Flores PA-C Last Filed: 02/11/22 14:57> Extrem: General: Yes no clubbing, cyanosis or edema <Alexa Flores PA-C Last Filed: 02/11/22 14:57> Assessment and Plan (1) Cellulitis of left breast: Status: Acute <PING Anthony Last Filed: 02/11/22 14:57> has cellulitis around mastectomy site extending inferiorly and to the back no fluctuance or seroma no fever admitted direcly from the office seen and examined independently - agree with SAGAR Flores <Mello Shine MD - Last Filed: 02/12/22 10:19> Plan 81 year old female who underwent left modified radical mastectomy on 12/30/21 for invasive ductal carcinoma who presented to the office with left breast redness and warmth. She has significant erythema and induration of the mastectomy site extending into the abdomen and back. No abscess appreciated. It was recommended to be admi tted for treatment of the cellulitis of the mastectomy site and treatment with IV antibiotics and observation. After a lengthy discussion, the patient agreed to be admitted. She will be a direct admit to the surgical service under Dr. Shine. She is started on IV ceftriaxone, IVF, pain management as needed. Will obtain CBC, BMP and blood cultures. Diabetic diet. Resume home meds. <Alexa Flores PA-C - Last Filed: 02/11/22 14:57> Quality Stroke Does the patient have a stroke diagnosis?: No <Alexa Flores PA-C - Last Filed: 02/11/22 14:57> VTE Prior VTE?: No <Alexa Flores PA-C - Last Filed: 02/11/22 14:57> VTE Risk Level:: Medical - moderate - high <Alexa Flores PA-C - Last Filed: 02/11/22 14:57> VTE Device Contraindication: N/A - Device Ordered <Alexa Flores PA-C - Last Filed: 02/11/22 14:57> VTE Drug Contraindication: N/A - Med Ordered <Alexa Flores PA-C - Last Filed: 02/11/22 14:57> Procedures Date of Service Date of Service: 02/11/22 <Alexa Flores PA-C - Last Filed: 02/11/22 14:57>
[2022-02-11 16:00] VITALS: BP 147/69; PULSE 79; RESP 18; TEMP 36.8; O2SAT 93
--- NOTE | 2022-02-11 16:00 | PHA.MEDREC ---
Pharmacy Consult ? Medication Reconciliation Pharmacy has completed the medication reconciliation.
[2022-02-11 16:12] VITALS: BMI 38.2
[2022-02-11 16:15] LABS: MANUAL DIFF FLAG NO
[2022-02-11 16:20] LABS: Basophils Percent Auto 0.1 % (0-2); Eosinophils Absolute Auto 0.1 X10*3/uL (0.0-0.4); Hematocrit 36.4 % (37.0-47.0); Hemoglobin 11.9 g/dl (12.0-16.0); Imm Gran Abs Auto 0.08 X10*3/uL (0.00-0.03); Lymphocytes Absolute Auto 2.3 X10*3/uL (1.2-4.9); Lymphocytes Percent Auto 30.4 % (20-40); Mean Corpuscular HGB Conc 32.7 g/dl (31.0-35.0); Mean Corpuscular Hemoglobin 26.8 pg (27.0-33.0); Mean Platelet Volume 11.3 fL (9.4-12.3); Monocytes Absolute Auto 1.4 X10*3/uL (0.1-1.2); Monocytes Percent Auto 18.6 % (2-11); Neutrophils Absolute Auto 3.8 x10*3/uL (2.0-8.3); Neutrophils Percent Auto 48.9 % (45-73); Platelet Count 173 X10*3/uL (160-400); Red Blood Count 4.44 X10*6/uL (4.20-5.50); Red Cell Distribution Width 15.9 % (11.0-16.0); White Blood Count 7.7 X10*3/uL (4.8-10.8)
[2022-02-11 16:30] LABS: Anion Gap 11 (12-20); Blood Urea Nitrogen 18 mg/dL (9-16); Carbon Dioxide 32 mmol/L (22-29); Chloride 101 mmol/L (96-108); Creatinine Clr Calc Pharmacy 49.6; Estimated Glomerular Filt Rate 58; Glucose Random 95 mg/dL (60-115); Potassium 4.3 mmol/L (3.3-5.1); Sodium 140 mmol/L (135-145)
[2022-02-11 16:32] LABS: Anion Gap 11 (12-20); Blood Urea Nitrogen 19 mg/dL (9-16); Calcium 9.1 mg/dL (8.4-10.2); Carbon Dioxide 32 mmol/L (22-29); Chloride 102 mmol/L (96-108); Creatinine Clr Calc Pharmacy 48.6; Estimated Glomerular Filt Rate 57; Glucose Random 94 mg/dL (60-115); Potassium 4.3 mmol/L (3.3-5.1); Sodium 141 mmol/L (135-145)
[2022-02-11] MEDS: 0.9 % Sodium Chloride 1,000 ML 80 ML IVCONT (16:32)
[2022-02-11] MEDS: cefTRIAXone sodium 1 GM in 0.9 % Sodium Chloride 50 ML IV (16:32)
[2022-02-11] MEDS: 0.9 % Sodium Chloride Flush 3 ML SYRINGE IVFLUSH ×2 (16:32)
[2022-02-11] MEDS: Apixaban 5 MG TABLET PO (20:26)
[2022-02-12] VITALS: BP 145/70; PULSE 73; RESP 18; TEMP 36.4; O2SAT 94
[2022-02-12] MEDS: 0.9 % Sodium Chloride 1,000 ML 80 ML IVCONT (03:54)
[2022-02-12 07:46] VITALS: BP 154/72; PULSE 71; RESP 17; TEMP 36.4; O2SAT 94
[2022-02-12] MEDS: Metoprolol Succinate ER 100 MG TAB.ER.24H 200 MG PO (07:47)
[2022-02-12] MEDS: dilTIAZem HCL CD 120 MG CAP.ER.DEG PO (07:47)
[2022-02-12] MEDS: Apixaban 5 MG TABLET PO ×2 (07:48→20:24)
[2022-02-12] MEDS: Bumetanide 1 MG TABLET 2 MG PO (07:48)
[2022-02-12] MEDS: Potassium Chloride ER 20 MEQ TAB.ER.PRT PO (07:48)
[2022-02-12] MEDS: Isosorbide Mononitrate 60 MG TAB.ER.24H PO (07:48)
--- NOTE | 2022-02-12 10:19 | P.PNGS_ITS ---
Subjective Subjective Date of Service: 02/12/22 Interval history: aubree pain no complaints says she feels redness is billet header Physical Exam Vital Signs: Vital Signs: Last Vital Signs Temp 97.5 F 02/12/22 07:46 Pulse 71 02/12/22 07:46 Resp 17 02/12/22 07:46 BP 154/72 H 02/12/22 07:46 Pulse Ox 94 02/12/22 07:46 BMI result Body Mass Index 38.2 Const: Other: ambulating General: comfortable and no acute distress Chest: Other: redness on chest wall, appears a little billet header, same margins Resp: Effort & Inspection: normal respiratory effort Cardio: Rate: regular rate GI: Palpation (GI): Soft to palpation and nontender Objective Data Active Medications Acetaminophen (Acetaminophen 325 Mg Tablet) 650 mg PO Q6H PRN PRN Reason: pain, fever Apixaban (Apixaban 5 Mg Tablet) 5 mg PO BID [facility] Last Admin: 02/12/22 07:48 Dose: 5 mg Documented by: LUCIANO Bumetanide (Bumetanide 1 Mg Tablet) 2 mg PO DAILY [facility]; Protocol Last Admin: 02/12/22 07:48 Dose: 2 mg Documented by: LUCIANO Diltiazem HCl (Diltiazem Hcl Cd 120 Mg Cap.Er.Deg) 120 mg PO DAILY [facility]; Protocol Last Admin: 02/12/22 07:47 Dose: 120 mg Documented by: LUCIANO Docusate Sodium (Docusate Sodium 100 Mg Capsule) 100 mg PO DAILY PRN PRN Reason: Constipation Sodium Chloride (Ns) 1,000 mls @ 80 mls/hr IVCONT .[id number] [facility] Last Admin: 02/12/22 03:54 Dose: 80 mls/hr Documented by: ODRISKeegan Ceftriaxone Sodium 1 gm/ (Sodium Chloride) 50 mls @ 100 mls/hr IV Q24H [facility] Last Infusion: 02/11/22 17:22 Dose: 0 mls/hr Documented by: COTEMA Isosorbide Mononitrate (Isosorbide Mononitrate 60 Mg Tab.Er.24h) 60 mg PO DAILY [facility]; Protocol Last Admin: 02/12/22 07:48 Dose: 60 mg Documented by: LUCIANO Melatonin (Melatonin 3 Mg Tablet) 6 mg PO BEDTIME PRN PRN Reason: Insomnia Metoprolol Succinate (Metoprolol Succinate Er 100 Mg Tab.Er.24h) 200 mg PO DAILY [facility]; Protocol Last Admin: 02/12/22 07:47 Dose: 200 mg Documented by: LUCIANO Ondansetron HCl (Ondansetron Hcl 4 Mg/2 Ml Vial) 4 mg IVPUSH Q8H PRN PRN Reason: Nausea and Vomiting Oxycodone HCl (Oxycodone Hcl Immed Release 5 Mg Tablet) 5 mg PO Q6H PRN PRN Reason: Pain, Severe (Pain Scale 7-10) Potassium Chloride (Potassium Chloride Er 20 Meq Tab.Er.Prt) 20 meq PO DAILY [facility] Last Admin: 02/12/22 07:48 Dose: 20 meq Documented by: LUCIANO Sodium Chloride (0.9 % Sodium Chloride Flush 3 Ml Syringe) [facility] Last Admin: 02/12/22 07:48 Dose: Not Given Documented by: LUCIANO Non-Admin Reason: IV Running Sodium Chloride (0.9 % Sodium Chloride Flush 3 Ml Syringe) 3 ml IVFLUSH [facility] Last Admin: 02/12/22 07:48 Dose: Not Given Documented by: LUCIANO Non-Admin Reason: IV Running Labs CBC & Chem 7: 02/11/22 16:05 02/11/22 16:05 Labs: Laboratory Results - last 24 hr 02/11/22 02/11/22 02/11/22 16:05 16:05 16:05 MCV 82.0 Cancelled MCH 26.8 L Cancelled MCHC 32.7 Cancelled RDW 15.9 Cancelled Plt Count 173 D Cancelled MPV 11.3 Cancelled Immature Gran % (Auto) 1.0 H Neut % (Auto) 48.9 Lymph % (Auto) 30.4 [place] % (Auto) 18.6 H Eos % (Auto) 1.0 Baso % (Auto) 0.1 Lymph # (Auto) 2.3 [place] # (Auto) 1.4 H Eos # (Auto) 0.1 Baso # (Auto) 0.0 Abs Immat Gran (auto) 0.08 H Absolute Neuts (auto) 3.8 Absolute Nucleated RBC 0.000 Cancelled Nucleated RBC % (auto) 0.0 Cancelled Anion Gap 11 L Estim Creat Clear Calc 49.6 Estimated GFR 58 Random Glucose 95 Calcium 9.0 D 02/11/22 16:05 MCV MCH MCHC RDW Plt Count MPV Immature Gran % (Auto) Neut % (Auto) Lymph % (Auto) [place] % (Auto) Eos % (Auto) Baso % (Auto) Lymph # (Auto) [place] # (Auto) Eos # (Auto) Baso # (Auto) Abs Immat Gran (auto) Absolute Neuts (auto) Absolute Nucleated RBC Nucleated RBC % (auto) Anion Gap 11 L Estim Creat Clear Calc 48.6 Estimated GFR 57 Random Glucose 94 Calcium 9.1 Procedures Date of Service Date of Service: 02/12/22 Progress Note: A&P Assessment and plan (1) Cellulitis of left breast: Status: Acute Assessment and Plan: cellulitis around mastectomy site continue IV abx - on Ceftriaxone looks well labs ok plan to dc once with noticeable improvement Fall Risk Details Current Medications: Current Medications Acetaminophen (Acetaminophen 325 Mg Tablet) 650 mg PO Q6H PRN PRN Reason: pain, fever Apixaban (Apixaban 5 Mg Tablet) 5 mg PO BID [facility] Last Admin: 02/12/22 07:48 Dose: 5 mg Documented by: Bumetanide (Bumetanide 1 Mg Tablet) 2 mg PO DAILY [facility]; Protocol Last Admin: 02/12/22 07:48 Dose: 2 mg Documented by: Diltiazem HCl (Diltiazem Hcl Cd 120 Mg Cap.Er.Deg) 120 mg PO DAILY [facility]; Protocol Last Admin: 02/12/22 07:47 Dose: 120 mg Documented by: Docusate Sodium (Docusate Sodium 100 Mg Capsule) 100 mg PO DAILY PRN PRN Reason: Constipation Sodium Chloride (Ns) 1,000 mls @ 80 mls/hr IVCONT .[id number] [facility] Last Admin: 02/12/22 03:54 Dose: 80 mls/hr Documented by: Ceftriaxone Sodium 1 gm/ (Sodium Chloride) 50 mls @ 100 mls/hr IV Q24H [facility] Last Infusion: 02/11/22 17:22 Dose: Infused Documented by: Isosorbide Mononitrate (Isosorbide Mononitrate 60 Mg Tab.Er.24h) 60 mg PO DAILY [facility]; Protocol Last Admin: 02/12/22 07:48 Dose: 60 mg Documented by: Melatonin (Melatonin 3 Mg Tablet) 6 mg PO BEDTIME PRN PRN Reason: Insomnia Metoprolol Succinate (Metoprolol Succinate Er 100 Mg Tab.Er.24h) 200 mg PO DAILY [facility]; Protocol Last Admin: 02/12/22 07:47 Dose: 200 mg Documented by: Ondansetron HCl (Ondansetron Hcl 4 Mg/2 Ml Vial) 4 mg IVPUSH Q8H PRN PRN Reason: Nausea and Vomiting Oxycodone HCl (Oxycodone Hcl Immed Release 5 Mg Tablet) 5 mg PO Q6H PRN PRN Reason: Pain, Severe (Pain Scale 7-10) Potassium Chloride (Potassium Chloride Er 20 Meq Tab.Er.Prt) 20 meq PO DAILY [facility] Last Admin: 02/12/22 07:48 Dose: 20 meq Documented by: Sodium Chloride (0.9 % Sodium Chloride Flush 3 Ml Syringe) [facility] Last Admin: 02/12/22 07:48 Dose: Not Given Documented by: Sodium Chloride (0.9 % Sodium Chloride Flush 3 Ml Syringe) 3 ml IVFLUSH [facility] Last Admin: 02/12/22 07:48 Dose: Not Given Documented by: Time Spent With Patient Time: Total time spent is greater than 50% in coordination of care (as documented) at patient's floor/unit and/or counseling patient: Quality Stroke Does the patient have a stroke diagnosis?: No VTE Prior VTE?: No VTE Risk Level:: Medical - moderate - high VTE Device Contraindication: N/A - Device Ordered VTE Drug Contraindication: N/A - Med Ordered
--- NOTE | 2022-02-12 11:10 | MHC.CM.PN ---
Addendum entered by Susie Escobedo 02/12/22 11:22: HCP FOUND IN [employer] PREVIOUS VISIT. PRINTED, PLACED IN CHART, AND A REQUEST ATTACHED TO UPLOAD INTO [employer] Original Note: PATIENT LIVES WITH SPOUSE SHE IS FULLY INDEPENDENT SHE DOES HAVE A CANE THAT SHE USES ON OCCASION. COVID VACCINATED (MODERNA) X 3. 12/30/20 01/27/21 10/07/21 INFORMATION ADDED TO EXPANSE. SHE REPORTS COMPLETING A HCP HERE AND A COPY IS AT HOME, NAMING HER SPOUSE PRIMARY AGENT. PLAN IS HOME TOMORROW ON PO ABX FAMILY TO TRANSPORT IMM /2 IN CHART
[2022-02-12] MEDS: 0.9 % Sodium Chloride Flush 3 ML SYRINGE IVFLUSH ×4 (15:31→20:26)
[2022-02-12 15:51] VITALS: BP 174/62; PULSE 69; RESP 18; TEMP 36.4; O2SAT 93
[2022-02-12 23:22] VITALS: BP 151/70; PULSE 73; RESP 18; TEMP 36.4; O2SAT 93
[2022-02-13 07:41] VITALS: BP 161/79; PULSE 73; RESP 18; TEMP 36.7; O2SAT 94
[2022-02-13] MEDS: dilTIAZem HCL CD 120 MG CAP.ER.DEG PO (08:48)
[2022-02-13] MEDS: Potassium Chloride ER 20 MEQ TAB.ER.PRT PO (08:48)
[2022-02-13] MEDS: Isosorbide Mononitrate 60 MG TAB.ER.24H PO (08:48)
[2022-02-13] MEDS: Apixaban 5 MG TABLET PO (08:48)
[2022-02-13] MEDS: Metoprolol Succinate ER 100 MG TAB.ER.24H 200 MG PO (08:48)
[2022-02-13] MEDS: Bumetanide 1 MG TABLET 2 MG PO (08:48)
[2022-02-13] MEDS: 0.9 % Sodium Chloride Flush 3 ML SYRINGE IVFLUSH ×2 (08:48)
--- NOTE | 2022-02-13 10:51 | P.PNGS_ITS ---
Subjective Subjective Date of Service: 02/13/22 Interval history: denies complaints no pain feels well says she is looking forward to going home Physical Exam Vital Signs: Vital Signs: Last Vital Signs Temp 98.1 F 02/13/22 07:41 Pulse 73 02/13/22 07:41 Resp 18 02/13/22 07:41 BP 161/79 H 02/13/22 07:41 Pulse Ox 94 02/13/22 07:41 BMI result Body Mass Index 38.2 Const: General: comfortable and no acute distress Resp: Effort & Inspection: normal respiratory effort Cardio: Rate: regular rate GI: Palpation (GI): Soft to palpation, not firm and nontender Objective Data Active Medications Acetaminophen (Acetaminophen 325 Mg Tablet) 650 mg PO Q6H PRN PRN Reason: pain, fever Apixaban (Apixaban 5 Mg Tablet) 5 mg PO BID [facility] Last Admin: 02/13/22 08:48 Dose: 5 mg Documented by: LUCIANO Bumetanide (Bumetanide 1 Mg Tablet) 2 mg PO DAILY [facility]; Protocol Last Admin: 02/13/22 08:48 Dose: 2 mg Documented by: LUCIANO Diltiazem HCl (Diltiazem Hcl Cd 120 Mg Cap.Er.Deg) 120 mg PO DAILY [facility]; Protocol Last Admin: 02/13/22 08:48 Dose: 120 mg Documented by: LUCIANO Docusate Sodium (Docusate Sodium 100 Mg Capsule) 100 mg PO DAILY PRN PRN Reason: Constipation Cefazolin Sodium 1 gm/ Sodium (Chloride) 50 mls @ 100 mls/hr IV Q8H [facility] Last Infusion: 02/13/22 03:33 Dose: 0 mls/hr Documented by: ODDENNIS Isosorbide Mononitrate (Isosorbide Mononitrate 60 Mg Tab.Er.24h) 60 mg PO DAILY [facility]; Protocol Last Admin: 02/13/22 08:48 Dose: 60 mg Documented by: LUCIANO Melatonin (Melatonin 3 Mg Tablet) 6 mg PO BEDTIME PRN PRN Reason: Insomnia Metoprolol Succinate (Metoprolol Succinate Er 100 Mg Tab.Er.24h) 200 mg PO DAILY [facility]; Protocol Last Admin: 02/13/22 08:48 Dose: 200 mg Documented by: LUCIANO Ondansetron HCl (Ondansetron Hcl 4 Mg/2 Ml Vial) 4 mg IVPUSH Q8H PRN PRN Reason: Nausea and Vomiting Oxycodone HCl (Oxycodone Hcl Immed Release 5 Mg Tablet) 5 mg PO Q6H PRN PRN Reason: Pain, Severe (Pain Scale 7-10) Potassium Chloride (Potassium Chloride Er 20 Meq Tab.Er.Prt) 20 meq PO DAILY [facility] Last Admin: 02/13/22 08:48 Dose: 20 meq Documented by: LUCIANO Sodium Chloride (0.9 % Sodium Chloride Flush 3 Ml Syringe) 3 ml IVFLUSH [facility] Last Admin: 02/13/22 08:48 Dose: 3 ml Documented by: LUCIANO Sodium Chloride (0.9 % Sodium Chloride Flush 3 Ml Syringe) 3 ml IVFLUSH [facility] Last Admin: 02/13/22 08:48 Dose: 3 ml Documented by: LUCIANO Labs CBC & Chem 7: 02/11/22 16:05 02/11/22 16:05 Microbiology Microbiology Results: Microbiology 02/11/22 16:05 Blood Culture - Preliminary Blood - Venous No growth after 24 hours. 02/11/22 16:05 Blood Culture - Preliminary Blood - Venous No growth after 24 hours. Procedures Date of Service Date of Service: 02/13/22 Progress Note: A&P Assessment and plan (1) Cellulitis of left breast: Status: Acute Assessment and Plan: cellulitis on mastectomy site redness has lightened signficantly, although extent of redness seems similar she says she has had this for almost 2 weeks now she looks well no fever, no leukocytosis doubt redness will resolve quickly this has lightened significantly plan to dc home on PO abx later today she is comfortable with plan Fall Risk Details Current Medications: Current Medications Acetaminophen (Acetaminophen 325 Mg Tablet) 650 mg PO Q6H PRN PRN Reason: pain, fever Apixaban (Apixaban 5 Mg Tablet) 5 mg PO BID [facility] Last Admin: 02/13/22 08:48 Dose: 5 mg Documented by: Bumetanide (Bumetanide 1 Mg Tablet) 2 mg PO DAILY [facility]; Protocol Last Admin: 02/13/22 08:48 Dose: 2 mg Documented by: Diltiazem HCl (Diltiazem Hcl Cd 120 Mg Cap.Er.Deg) 120 mg PO DAILY [facility]; Protocol Last Admin: 02/13/22 08:48 Dose: 120 mg Documented by: Docusate Sodium (Docusate Sodium 100 Mg Capsule) 100 mg PO DAILY PRN PRN Reason: Constipation Cefazolin Sodium 1 gm/ Sodium (Chloride) 50 mls @ 100 mls/hr IV Q8H [facility] Last Infusion: 02/13/22 03:33 Dose: Infused Documented by: Isosorbide Mononitrate (Isosorbide Mononitrate 60 Mg Tab.Er.24h) 60 mg PO DAILY [facility]; Protocol Last Admin: 02/13/22 08:48 Dose: 60 mg Documented by: Melatonin (Melatonin 3 Mg Tablet) 6 mg PO BEDTIME PRN PRN Reason: Insomnia Metoprolol Succinate (Metoprolol Succinate Er 100 Mg Tab.Er.24h) 200 mg PO DAILY [facility]; Protocol Last Admin: 02/13/22 08:48 Dose: 200 mg Documented by: Ondansetron HCl (Ondansetron Hcl 4 Mg/2 Ml Vial) 4 mg IVPUSH Q8H PRN PRN Reason: Nausea and Vomiting Oxycodone HCl (Oxycodone Hcl Immed Release 5 Mg Tablet) 5 mg PO Q6H PRN PRN Reason: Pain, Severe (Pain Scale 7-10) Potassium Chloride (Potassium Chloride Er 20 Meq Tab.Er.Prt) 20 meq PO DAILY [facility] Last Admin: 02/13/22 08:48 Dose: 20 meq Documented by: Sodium Chloride (0.9 % Sodium Chloride Flush 3 Ml Syringe) 3 ml IVFLUSH [facility] Last Admin: 02/13/22 08:48 Dose: 3 ml Documented by: Sodium Chloride (0.9 % Sodium Chloride Flush 3 Ml Syringe) 3 ml IVFLUSH [facility] Last Admin: 02/13/22 08:48 Dose: 3 ml Documented by: Time Spent With Patient Time: Total time spent is greater than 50% in coordination of care (as documented) at patient's floor/unit and/or counseling patient: Quality Stroke Does the patient have a stroke diagnosis?: No VTE Prior VTE?: No VTE Risk Level:: Medical - moderate - high VTE Device Contraindication: N/A - Device Ordered VTE Drug Contraindication: N/A - Med Ordered
--- NOTE | 2022-02-13 15:32 | MHC.CM.PN ---
PATIENT IS DISCHARGED HOME - SELF CARE [facility] IS TRANSPORTING. RN AWARE OF PLAN.
--- NOTE | 2022-02-14 10:46 | PM.DS ---
DS: Providers Provider Date of Service: 02/13/22 Date of admission: 02/11/22 15:31 Primary care physician: Lee Tapia MD Attending physician on admission: Mello Shine Attending physician on discharge: Mello Shine DS: Diagnosis Discharge Diagnosis (1) Cellulitis of left breast: Status: Acute DS: Summary Hospital Course Hospital Course: BRIEF HPI: Annabelle Mendoza is a 81 year old female with PMH of A fib on eliquis, HTN, recent left modified radical mastectomy on 12/30/21 for invasive ductal CA of left breast who presented to the office today for increasing redness of the mastectomy site. She was seen 1 week post op and was doing well then. Her incision was clean. Her drains were removed. She reports she had been doing well since her post op visit. She did call Mio, chief sustainability officer on Monday02/04/22 and stated the mastectomy site was a little more swollen then usual. She denied redness, drainage, pain at that time. She was told to call back if it became red or began to worsen. She called today and stated it was very red and was instructed to come in. She reports it progressively worsened since last Monday and became very red and warm today, prompting her to call. She continues to deny drainage from the breast or pain. She denies trauma to the site or any bites, fever or chills. She otherwise feels well. HOSPITAL COURSE: The patient had significant erythema and induration of the left mastectomy site necessitating IV abx. She was therefore directly admitted to the surgical service. She was started on IV ceftriaxone for treatment of the cellulitis of the mastectomy site. She remained inpatient until the cellulitis showed significant improvement. CBC, BMP were WNL and blood cultures were obtained which were negative. On HD #2, the erythema had lightened significantly. The patient felt ready for discharge. She was discharged to home on a course of PO Keflex 500mg TID for 10 days in stable condition. She is to follow up with Dr. Crawford in office in 2 weeks. Status at Discharge Functional status at discharge: independent ambulation Overall status at discharge: patient is progressing back to baseline Time Spent with Patient Time attestation: Total time spent providing and/or coordinating discharge services: Discharge coordination time: Greater than 30 minutes Quality: Safe Use of Opioids Does Pt have an Active Cancer Diagnosis on the Problem List?: Yes Opioid Measure Date for [facility] Report: 01/16/22 Opioid Measure Time for [facility] Report: 14:05 Quality: Stroke Does the patient have a stroke diagnosis?: No Physical Exam Vital Signs: Vital Signs: Last Vital Signs Temp 98.1 F 02/13/22 07:41 Pulse 73 02/13/22 07:41 Resp 18 02/13/22 07:41 BP 161/79 H 02/13/22 07:41 Pulse Ox 94 02/13/22 07:41 BMI result Body Mass Index 38.2 Const: General: comfortable, no acute distress and alert Orientation/consciousness: patient oriented x3 Chest: Other: L mastectomy site- erythema significantly lightened but extension remains similar; remains nontender Skin: Other: warm and dry Neuro: General: patient oriented x3 DS: Data Data Completed and Pending Completed studies during hospitalization [Text1]: Procedures Resection of Left Breast, Open Approach (12/30/21) Labs on day of discharge: Preliminary micro results at discharge 02/11/22 16:05 Blood Culture - Preliminary Blood - Venous No growth after 48 hours. 02/11/22 16:05 Blood Culture - Preliminary Blood - Venous No growth after 48 hours. Discharge Plan Discharge Patient Disposition: Home, Self-Care Discharge Diagnosis: cellulitis Referrals: Lee Tapia MD [Primary Care Provider] - 1 Week Mitchel Crawford MD [Physician] - 2 Weeks Discharge Medications: New cephalexin 500 mg tablet 500 mg PO TID Qty: 27 0RF Continued multivitamin Tablet 1 tab PO DAILY 0RF calcium carbonate 600 mg calcium (1,500 mg) Tablet 600 mg PO TID 0RF cholecalciferol (vitamin D3) [Vitamin D3] 25 mcg (1,000 unit) Capsule 25 mcg PO DAILY 0RF potassium chloride 20 mEq tablet extended release 1 tab PO DAILY 0RF docusate sodium [Colace] 100 mg capsule 100 mg PO BID PRN (Reason: constipation) Qty: 30 0RF Eliquis 5 mg tablet 5 mg PO BID 0RF isosorbide mononitrate 60 mg tablet extended release 24 hr 60 mg PO DAILY 0RF bumetanide 2 mg tablet 2 mg PO DAILY 0RF diltiazem HCl 120 mg capsule,extended release 24hr 120 mg PO DAILY 0RF metoprolol succinate 200 mg tablet extended release 24 hr 200 mg PO DAILY 0RF Discharge Orders: Discharge Order (Routine); Ordered 02/13/22 Ordered By: Mello Shine Activity on Discharge: As tolerated Stand Alone Forms: Patient Portal Discharge page Care Plan Goals: treat cellulitis Health Concerns: hx of breast cancer Plan of Treatment: treat cellulitis Assessment: doing well, much improved Discharge Date/Time: 02/13/22 16:04
== END 2022-02-13 16:04 | disposition home or self-care (01) | DRG 921 ==
LOC: HO.S3 15:32
PROVIDERS: Physician Assistant Surgical; Admitting Provider Surgery; PCP Internal Medicine Medical Oncology; Visit Provider Surgery
DX: L76.82 Other postprocedural complications of skin and subcutaneous tissue (principal); N61.0 Mastitis without abscess; I10 Essential (primary) hypertension; I48.91 Unspecified atrial fibrillation; Z88.2 Allergy status to sulfonamides; Z79.01 Long term (current) use of anticoagulants; Z79.899 Other long term (current) drug therapy
CPT/HCPCS: 36415; 80048; 85025; 87040; 99212; J0690; J0696; J2543

== ENCOUNTER → 2022-03-03 13:01 | Outpatient (BNVA) | payer MEDICARE, SELFPAY | PROVIDERS: PCP Internal Medicine Medical Oncology; Referring Provider Internal Medicine Medical Oncology; Visit Provider Surgery | DX: Z48.3 Aftercare following surgery for neoplasm (principal); C50.912 Malignant neoplasm of unspecified site of left female breast; Z90.12 Acquired absence of left breast and nipple | CPT/HCPCS: 99212 ==